=== PATIENT | female | born 1960 | race Caucasian/White ===

== ENCOUNTER 2020-11-19 23:39 | Emergency (ER) | payer OTHER ==
[~2020-11-19 23:39] MED LIST: ATIVAN0.5 M1 PO; LEVOTHYROXINE50 MCG PO; PREDNISONE 20MG20 MG PO; PROTONIX 40MG T40 MG PO; TESSALON PERLE100 MG PO; ZYRTEC-D TABLE1 EACH PO
[2020-11-20 01:28] LABS: INFLUENZA A NAA NEGATIVE (NEGATIVE)
[2020-11-20 01:30] LABS: CORONAVIRUS 2019 SARS-COV-2 POSITIVE (NEGATIVE)
[2020-11-20] MEDS ORDERED: MEDROL 4MG DOSEP4 MG PO (01:43)
== END 2020-11-20 02:15 | disposition home or self-care (01) ==
LOC: FER 23:39
PROVIDERS: Emergency Medicine
DX: U07.1 COVID-19 (principal); K21.9 Gastro-esophageal reflux disease without esophagitis; E07.9 Disorder of thyroid, unspecified; Z88.1 Allergy status to other antibiotic agents; Z79.899 Other long term (current) drug therapy
CPT/HCPCS: 87880; 99284; J7512; U0002

== ENCOUNTER 2020-11-23 09:02 | Emergency (ER) | payer OTHER ==
[~2020-11-23 09:02] MED LIST changes: +MEDROL 4MG DOSEP4 MG PO
[2020-11-23 11:45] LABS: BASOPHIL 0.5 % (0-2); EOSINOPHIL 0.2 % (0-5); HCT 40.5 % (37.0-47.0); HGB 13.4 g/dl (12.5-16.0); LYMPHOCYTE 17.2 % (15-48); MCH 29.5 pg (25.0-31.0); MCHC 33.1 g/dL (32.0-36.0); MONOCYTE 5.8 % (0-12); MPV 10.4 fL (6.0-9.5); NRBC 0; PLT 242 K/uL (150-400); RBC 4.55 M/uL (4.20-5.40); RDW 13.2 % (11.5-14.0); WBC 6.3 K/uL (4.0-10.5)
[2020-11-23 11:58] LABS: ALBUMIN 3.9 g/dL (3.4-5.0); BILIRUBIN - TOTAL 0.3 mg/dL (0.2-1.0); BUN/CREAT RATIO (CALC) 10.1 RATIO; CREATININE 0.79 mg/dL (0.51-0.95); GLOBULIN (CALCULATION) 2.8 g/dL; POTASSIUM 4.1 mmol/L (3.5-5.1); TOTAL PROTEIN 6.7 g/dL (6.4-8.2)
[2020-11-23 12:04] LABS: PRO-BNP 193 pg/mL (<125)
== END 2020-11-23 13:21 | disposition home or self-care (01) ==
LOC: FER 09:02
PROVIDERS: Emergency Medicine
DX: U07.1 COVID-19 (principal); J12.82 Pneumonia due to coronavirus disease 2019; Z88.1 Allergy status to other antibiotic agents
CPT/HCPCS: 36415; 36600; 71045; 80053; 82803; 83880; 84484; 85025; 85379; 93005